=== PATIENT | female | born 1980 | race Caucasian/White ===

== ENCOUNTER 2018-06-07 09:42 | Emergency (ER) | payer MEDICAID ==
[~2018-06-07] VITALS: Ht 157.5 cm; Wt 69.9 kg
[2018-06-07 09:56] VITALS: Ht 157.5 cm; Wt 69.9 kg
[2018-06-07 11:12] LABS: BASOPHIL % 0.1 % (0-2); PLATELET COUNT 342 x10^3mcL (130-400)
[2018-06-07 11:19] LABS: CALCIUM 8.4 mg/dL (8.5-10.1); CARBON DIOXIDE 22.8 mmol/L (21-32); CHLORIDE SERUM 102 mmol/L (98-107); CREATININE SERUM 0.6 mg/dL (0.6-1.0); GFR1 > 60 mL/min; GLUCOSE SERUM 97 mg/dL (74-106); POTASSIUM SERUM 3.7 mmol/L (3.5-5.1); SODIUM SERUM 136 mmol/L (136-145)
[2018-06-07 11:26] LABS: RED CELL DISTRIBUTION WIDTH 17.1 % (11.5-14.5)
[2018-06-07 11:27] LABS: ALBUMIN 3.7 g/dL (3.4-5.0); ALKALINE PHOSPHATASE 50 U/L (46-116); ALT/SGPT 21 U/L (14-59); AST/SGOT 16 U/L (15-37); BILIRUBIN TOTAL 0.29 mg/dL (0.20-1.00); LIPASE 91 IU/L (73-393); TOTAL PROTEIN, SERUM 7.8 g/dL (6.4-8.2)
[2018-06-07 11:51] LABS: microscopic required? YES; urine erythrocyte 2+ (NEGATIVE)
[2018-06-07 14:32] VITALS: BP 102/67
== END 2018-06-07 14:32 | disposition home or self-care (01) ==
LOC: ED 09:42
PROVIDERS: Emergency Medicine
DX: K29.00 Acute gastritis without bleeding (principal); D64.9 Anemia, unspecified; R10.13 Epigastric pain; Z88.0 Allergy status to penicillin; R19.7 Diarrhea, unspecified
CPT/HCPCS: J0500; J3490; J7030